=== PATIENT | female | born 1990 | race Caucasian/White ===

== ENCOUNTER 2017-09-22 12:50 | Inpatient (IN) | payer OTHER ==
--- NOTE | 2017-09-21 14:12 | MH ---
cc: Babar Bergeron MD DATE OF ADMISSION: 09/22/2017 ADMITTING DIAGNOSIS: Term with macrosomia. HISTORY OF PRESENT ILLNESS: The patient is a 26-year-old white female, para 0, with LMP of 12/16/2016, EDC of 09/22/2017. Her course was benign at term. The baby is large with a small planimetry and patient is now admitted for delivery. PAST SURGICAL HISTORY: Breast reduction in 2012. MEDICATIONS: Vitamins. ALLERGIES: NONE. TRANSFUSION: None. SOCIAL HISTORY: She was previously a nanny, currently employed. Alcohol, tobacco and drugs are none. FAMILY HISTORY: Noncontributory. PHYSICAL EXAMINATION: GENERAL: Well-nourished, well-developed white female. VITAL SIGNS: Stable. HEENT: Normal. CHEST: Clear. HEART: Regular rate. BREASTS: Symmetrical. ABDOMEN: Gravid. EFW 4000 grams. PELVIC: Cervix is long, thick and closed. Vertex is ballotable. EXTREMITIES: Normal. ASSESSMENT: As above. She is now admitted for a primary section. While in the office, I explained the procedures, the risks, benefits and complications including infection, injury, bleeding, and trial of labor discussed and declined. The patient would like to proceed with delivery. MD VALARIE Briceño/SB , 01:50 PM , 02:10 PM
[2017-09-22] VITALS (7 sets, daily range): BP systolic 96–108; BP diastolic 59–70; PULSE 17–85; RESP 16–18; TEMP 97.3–98.7; O2SAT 96–100
[~2017-09-22] VITALS: Ht 170.2 cm; Wt 91.0 kg
[~2017-09-22 12:50] MED LIST: DEXAMETHASONE SOD PHOS 4 MG/ML VIAL IV ONE; LACTATED RINGER'S 1000 ML INJ 1,000 ML IV ONE; ONDANSETRON HCL 4 MG/2 ML VIAL IV ONE; OXYTOCIN 10 UNIT/ML AMP IV ONE; PHENYLEPH/NS 1000 MCG/10 ML SYR IV ONE; ceFAZolin INJ 1,000 MG VIAL IV ONE; ePHEDrine/NS 25 MG/5 ML SYRINGE IV ONE
[2017-09-22] MEDS: LACTATED RINGER'S 1000 ML INJ 1,000 ML IV SCH ×2 (13:04→23:04)
[2017-09-22 14:04] LABS: AUTOMATED NEUTROPHIL # 8.6 TH/MM3 (1.8-7.7); BASOPHIL # 0.1 TH/MM3 (0-0.2); BASOPHIL % 0.4 % (0.0-2.0); EOSINOPHIL # 0.1 TH/MM3 (0-0.4); EOSINOPHIL % 1.1 % (0.0-4.0); HEMATOCRIT 37.2 % (35.0-46.0); HEMOGLOBIN 12.8 GM/DL (11.6-15.3); LYMPH % 18.8 % (9.0-44.0); LYMPHOCYTE # 2.2 TH/MM3 (1.0-4.8); MEAN CELL VOLUME 94.7 FL (80.0-100.0); MEAN CORPUSCULAR HEMOGLOBIN 32.5 PG (27.0-34.0); MEAN CORPUSCULAR HGB CONC 34.3 % (32.0-36.0); MEAN PLATELET VOLUME 10.5 FL (7.0-11.0); MONO % 7.4 % (0.0-8.0); MONOCYTE # 0.9 TH/MM3 (0-0.9); NEUT % 72.3 % (16.0-70.0); PLATELET COUNT 176 TH/MM3 (150-450); RED BLOOD COUNT 3.93 MIL/MM3 (4.00-5.30); RED CELL DISTRIBUTION WIDTH 13.8 % (11.6-17.2); WHITE BLOOD COUNT 11.8 TH/MM3 (4.0-11.0)
[2017-09-22 14:15] LABS: BACTERIA, URINE OCC /hpf; BILIRUBIN, URINE NEG (NEG); BLOOD, URINE NEG (NEG); GLUCOSE,URINE NEG (NEG); KETONE, URINE 10 mg/dL (NEG); MUCUS URINE MOD /lpf (OCC); NITRITE,URINE NEG (NEG); SQUAMOUS EPITHELIAL CELL URINE 10 /hpf (0-5); URINE COLOR YELLOW (YELLW/STRAW); URINE LEUKOCYTE ESTERASE SMALL (NEG)
[2017-09-22] MEDS ORDERED: PREN1TAB45 PO (14:56)
[2017-09-22] MEDS ORDERED: ZOLO100T PO (14:56)
[2017-09-22] MEDS ORDERED: SIMETHICONE 80 MG CHEWABLE TAB PO PRN (15:00)
[2017-09-22] MEDS ORDERED: CITRIC ACID-SODIUM CITRATE LIQ 30 ML UDC PO SCH (15:00)
[2017-09-22] MEDS ORDERED: DOCUSATE SODIUM 50 MG/SENNA 8.6 MG TAB PO PRN (15:00)
[2017-09-22] MEDS ORDERED: KETOROLAC TROMETHAMINE 60 MG/2 ML (IM) VIAL IM PRN (15:00)
[2017-09-22] MEDS ORDERED: ZOLPIDEM TARTRATE 5 MG TAB PO PRN (15:00)
[2017-09-22] MEDS: LACTATED RINGER'S 1000 ML IV SCH ×2 (15:00→20:47)
[2017-09-22] MEDS ORDERED: KETOROLAC TROMETHAMINE 30 MG/ML (IVP) VIAL IV PUSH PRN (15:00)
[2017-09-22] MEDS ORDERED: oxyCODONE/ACETAMINOPHEN 5 MG/325 MG TAB PO PRN ×2 (15:00)
[2017-09-22] MEDS ORDERED: ONDANSETRON HCL 4 MG/2 ML VIAL IVP PRN (15:00)
[2017-09-22] MEDS ORDERED: OXYTOCIN 30 UNITS-500ML PREMIX 500 ML IV ONE (15:00)
[2017-09-22] MEDS ORDERED: MEASLES, MUMPS, RUBELLA VACCINE 0.5 ML VIAL SQ ONE (15:00)
[2017-09-22] MEDS: ACETAMINOPHEN 1000 MG/100 ML VIAL IV SCH ×2 (15:00→22:57)
[2017-09-22] MEDS ORDERED: MORPHINE SULFATE PF 5 MG/10 ML VIAL ONE (15:00)
[2017-09-22] MEDS ORDERED: LACTATED RINGER'S 1000 ML IV ONE (15:00)
[2017-09-22] MEDS ORDERED: ACETAMINOPHEN 1000 MG/100 ML 100 ML IV ONE (15:38)
--- NOTE | 2017-09-22 16:35 | MP ---
cc: Babar Bergeron MD DATE OF OPERATION: 09/22/2017 PREOPERATIVE DIAGNOSIS: Term , macrosomia, some slight disproportion. POSTOPERATIVE DIAGNOSIS: Term , macrosomia, some slight disproportion. PROCEDURE PERFORMED: Primary low transverse section. ANESTHESIA: Spinal. SURGEON: Babar Bergeron MD BAND SPLITTER: REINA Faustin ESTIMATED BLOOD LOSS: 700 mL. FLUIDS: 1.1 liter of crystalloid. OBJECTIVE FINDINGS: Following induction of adequate spinal anesthesia, the patient was prepped and draped supine on the operating table, left lateral tilt position, usual sterile fashion, with the bladder being drained by Leger catheterization. Abdomen was opened through a Pfannenstiel incision using the knife to cut down through the skin to the fascia. The fascia opened transversely, stripped from the muscles, rectus muscle split in the midline and the peritoneum opened sharply without incident. The bladder flap was taken down sharply, retracted inferior with a Freeman blade. The lower uterine segment was incised transversely with a knife and extended with blunt dissection clear fluid. Baby was in the LOT position. The vacuum extractor applied to the occiput and used to lift the head through the abdominal wound. Mouth suctioned, cord clamped and cut, baby passed to team. Viable, vigorous female. Apgars were 8 and 9, weight 8 pounds 7 ounces. Cord blood sent for typing. The placenta collected for donation and uterine cavity cleaned with laps. Uterus exteriorized and closed in 2 layers with running suture, first with running locking stitch of Vicryl, second with running imbricating stitch of Vicryl. Posterior inspection, uterus, tubes and ovaries normal. Uterus replaced in cavity. Irrigation performed. No bleeding was evident, and the bladder flap was closed with running stitch of 3-0 Vicryl. All laps and retractors were removed. Counts were correct. Anterior peritoneum closed with running stitch of 2-0 Vicryl, fascia with a running locking stitch of 3-0 Vicryl, corner to midline, tied. Subq closed with 3-0 Vicryl and skin with running subcuticular 3-0 Monocryl, Dermabond applied. All counts were correct, and the patient was awakened and taken to the recovery in good condition. MD VALARIE Briceño/KLAUDIA , 04:03 PM , 04:34 PM DESTIN
[2017-09-22] MEDS ORDERED: OXYTOCIN 30 UNITS-500ML PREMIX 500 ML IV PRN (18:15)
[2017-09-22] MEDS ORDERED: EPIDURAL-NO SYSTEMIC NARCOTICS PRN (18:45)
[2017-09-22] MEDS ORDERED: EPIDURAL-DO NOT ADMINISTER ANTICOAGULANTS PRN (18:45)
[2017-09-22] MEDS ORDERED: EPIDURAL-DIPHENHYDRAMINE HCL 50 MG CAP PO PRN (18:45)
[2017-09-22] MEDS ORDERED: EPIDURAL-NALOXONE HCL 0.4 MG/ML AMP IV PUSH PRN (18:45)
[2017-09-22] MEDS ORDERED: EPIDURAL-DIPHENHYDRAMINE HCL 50 MG/ML VIAL IV PUSH PRN (18:45)
[2017-09-23] VITALS: BP 102/58; PULSE 60; RESP 16; TEMP 97.8; O2SAT 96
[2017-09-23 04:00] VITALS: BP 107/60; PULSE 56; RESP 18; TEMP 98.2
[2017-09-23] MEDS: LACTATED RINGER'S 1000 ML IV SCH ×2 (04:20→11:00)
[2017-09-23 05:54] LABS: BASOPHIL # 0.1 TH/MM3 (0-0.2); BASOPHIL % 0.4 % (0.0-2.0); EOSINOPHIL % 0.2 % (0.0-4.0); HEMATOCRIT 31.7 % (35.0-46.0); HEMOGLOBIN 10.8 GM/DL (11.6-15.3); LYMPH % 13.8 % (9.0-44.0); LYMPHOCYTE # 2.1 TH/MM3 (1.0-4.8); MEAN CELL VOLUME 95.5 FL (80.0-100.0); MEAN CORPUSCULAR HEMOGLOBIN 32.5 PG (27.0-34.0); MEAN PLATELET VOLUME 10.8 FL (7.0-11.0); MONOCYTE # 1.2 TH/MM3 (0-0.9); NEUT % 77.6 % (16.0-70.0); PLATELET COUNT 159 TH/MM3 (150-450); RED BLOOD COUNT 3.32 MIL/MM3 (4.00-5.30); RED CELL DISTRIBUTION WIDTH 13.8 % (11.6-17.2); WHITE BLOOD COUNT 15.4 TH/MM3 (4.0-11.0)
[2017-09-23 06:26] LABS: BICARBONATE 23.8 MEQ/L (21.0-32.0); CALCIUM 8.5 MG/DL (8.5-10.1); CREATININE 0.64 MG/DL (0.50-1.00)
[2017-09-23] MEDS: ACETAMINOPHEN 1000 MG/100 ML VIAL IV SCH (06:28)
[2017-09-23 08:15] VITALS: BP 98/62; PULSE 58; RESP 16; TEMP 97.7; O2SAT 98
[2017-09-23 12:00] VITALS: BP 96/58
[2017-09-23] MEDS: IBUPROFEN 600 MG TAB PO PRN ×2 (15:13→22:52)
[2017-09-23 16:00] VITALS: BP 94/56; PULSE 70; RESP 16; TEMP 98.8; O2SAT 97
[2017-09-23 20:00] VITALS: BP 99/55; PULSE 72; RESP 18; TEMP 98.4
[2017-09-24] MEDS: IBUPROFEN 600 MG TAB PO PRN (07:18)
[2017-09-24 08:00] VITALS: BP 100/63; PULSE 61; RESP 20; TEMP 97.7; O2SAT 97
[2017-09-24] MEDS ORDERED: OXYC1TAB63 PO (08:31)
--- NOTE | 2017-09-24 08:32 | HHI.DCPOC ---
Discharge Care Plan Report Symptoms to Your Doctor -Temperature above 100.5 degrees -Redness, of incision or excessive or foul smelling drainage -Unusual pain or calf pain -Increased vaginal bleeding -Painful or difficulty urinating -Feelings of extreme sadness or anxiety after 2 weeks Goals to Promote Your Health * To prevent worsening of your condition and complications * To maintain your health at the optimal level Directions to Meet Your Goals Take your medications as prescribed Follow your dietary instruction Follow activity as directed Ensure plenty of rest for recovery Drink fluids for hydration Keep your appointments as scheduled Take your immunizations and boosters as scheduled If your symptoms worsen call your PCP, if no PCP go to Urgent Care Center or Emergency Room Smoking is Dangerous to Your Health. Avoid second hand smoke Call the 24-hour crisis hotline for domestic abuse at Babar Bergeron MD September 24, 2017 08:32
--- NOTE | 2017-09-24 08:53 | MD ---
cc: Babar Bergeron MD DATE OF DISCHARGE: 09/24/2017 ADMISSION DIAGNOSIS: 1. Term . 2. macrosomia. 3. Cephalopelvic disproportion. DISCHARGE DIAGNOSIS: 1. Term . 2. macrosomia. 3. Cephalopelvic disproportion. 4. Delivered. PROCEDURE PERFORMED: Primary low transverse section on 09/22/2017. HISTORY OF PRESENT ILLNESS: This is a 26-year-old white female, para 0, with LMP of 12/16/2016, EDC of 09/22/2017 progressed to term with vertex overriding the pubis, small planimetry and EFW of 4000 grams. Delivery options were discussed and the patient wished to proceed with section and was admitted for the same. On 09/22/2017 had a viable vigorous female, Apgars were 8 and 9, weight 8 pounds 7 ounces. did well. Discharged home in excellent condition on 09/24/2017. Her and postop labs are normal. She was given RhoGAM prior to discharge. She was advised NPV, light activity, return to see me in one week. She is to take her vitamins daily. She was given a prescription for Percocet 5 one p.o. q. 4 hours p.r.n., #30. Babar Bergeron MD JAW/DL , 08:36 AM , 08:52 AM
[2017-09-24] MEDS ORDERED: DIPHTH/TETANUS/ACEL PERTUSSIS (BOOSTER) 0.5 ML VIAL/PFS IM ONE (09:00)
== END 2017-09-24 11:01 | disposition home or self-care (01) | DRG 766 ==
LOC: H2EB 12:50 → H1EA 17:24
PROVIDERS: ADMIT Obstetrics & Gynecology; ATTEND Obstetrics & Gynecology
PROC: 10D00Z1 Extraction of Products of Conception, Low, Open Approach (ICD-10-PCS; principal; 2017-09-22)
DX: O33.5XX0 Maternal care for disproportion due to unusually large fetus, not applicable or unspecified (principal); Z37.0 Single live birth; Z3A.00 Weeks of gestation of pregnancy not specified
CPT/HCPCS: 59025; 80048; 80307; 81001; 85025; 85461; 86850; 86900; 86901; 87086; 90384; 90715; J0131; J0690; J1100; J2274; J2370; J2405; J2590; J2790; J7120; Q0163